=== PATIENT | female | born 2000 | race American Indian/Alaskan Native ===

== ENCOUNTER 2021-06-20 03:19 | Emergency (ER) | payer SELFPAY ==
[2021-06-20] MEDS ORDERED: ONDANSETRON 4 MG/2 ML INJ IV ONE (05:14)
[2021-06-20] MEDS ORDERED: SODIUM CHLORIDE 0.9% 1000 ML 1,000 ML IV ONE (05:17)
[2021-06-20 05:49] LABS: Hemoglobin 14.5 gm/dl (10.1-14.3); Mean Corpuscular HGB Conc 32 % (30-34); Mean Corpuscular Volume 88 fl (79-97); Platelet Count 227 K/mm3 (140-440); Red Cell Distribution Width 13.5 % (13.2-15.2)
[2021-06-20 06:01] LABS: Alanine Aminotransferase 9 units/L (7-56); Albumin 3.8 g/dL (3.9-5); BUN/Creatinine Ratio 11; Blood Urea Nitrogen 11 mg/dL (7-17); Calcium 9.5 mg/dL (8.4-10.2); Hemolysis Index 3
[2021-06-20] MEDS ORDERED: INSULIN REGULAR, HUMAN 100 UNITS/1 ML SUB-Q STA (06:35)
--- NOTE | 2021-06-20 06:46 | Emergency Department Report ---
ED General Adult HPI - General Chief complaint: Abdominal Pain Stated complaint: STOMACH PAIN Source: patient Mode of arrival: Ambulatory Limitations: No Limitations - History of Present Illness Initial comments: 30-year-old noncompliant diabetic -[place] female is my department complaining of nausea vomiting with occasional diarrhea and sensation of weakness for the last few days presents to emergency department seeking pain control and therapy for nausea and vomiting. Reports no hemoptysis hematemesis no hematochezia she reports having a few episodes of diarrhea some aches and pains and diffuse malaise but no chest pain no palpitations no shortness of breath no fever, chills, sweats. States she may have had asthma for quite some time which may have triggered some of the symptoms and needs to be started -: Gradual Radiation: non-radiation Quality: dull Consistency: constant Improves with: none Associated Symptoms: denies other symptoms Treatments Prior to Arrival: none - Related Data Previous Rx's Medication Instructions Recorded Last Taken Type Insulin Glargine [Lantus VIAL] 10 unit SUB-Q QHS #1 vial 06/20/21 Unknown Rx Allergies Allergy/AdvReac Type Severity Reaction Status Date / Time amoxicillin Allergy Anaphylaxis Verified 06/20/21 04:44 ED Review of Systems ROS: Stated complaint: STOMACH PAIN Other details as noted in HPI Comment: All other systems reviewed and negative ED Past Medical Hx - Past Medical History Previous Medical History?: No Hx Diabetes: Yes (Type 2) Hx Renal Disease: Yes - Surgical History Past Surgical History?: No - Medications Home Medications: Home Medications Medication Instructions Recorded Confirmed Last Taken Type Insulin Glargine [Lantus VIAL] 10 unit SUB-Q QHS #1 vial 06/20/21 Unknown Rx ED Physical Exam - General Limitations: No Limitations General appearance: alert, in no apparent distress - Head Head exam: Present: atraumatic, normocephalic - Eye Eye exam: Present: normal appearance, PERRL, EOMI Pupils: Present: normal accommodation - ENT ENT exam: Present: normal exam, mucous membranes moist, TM's normal bilaterally - Neck Neck exam: Present: normal inspection, full ROM. Absent: tenderness, meningismus, lymphadenopathy - Respiratory Respiratory exam: Present: normal lung sounds bilaterally. Absent: respiratory distress, wheezes, rales, rhonchi - Cardiovascular Cardiovascular Exam: Present: regular rate, normal rhythm. Absent: systolic murmur, diastolic murmur, rubs, gallop - GI/Abdominal GI/Abdominal exam: Present: soft, normal bowel sounds - Extremities Exam Extremities exam: Present: normal inspection - Back Exam Back exam: Present: normal inspection - Neurological Exam Neurological exam: Present: alert, oriented X3 - Psychiatric Psychiatric exam: Present: normal affect, normal mood - Skin Skin exam: Present: warm, dry, intact, normal color. Absent: rash ED Course Vital Signs 06/20/21 06/20/21 03:53 03:55 Temperature 97.9 F Pulse Rate 80 Respiratory 18 Rate Blood Pressure 221/111 O2 Sat by Pulse 91 96 Oximetry ED Medical Decision Making - Lab Data Result diagrams: 06/20/21 05:23 06/20/21 05:23 - EKG Data When compared to previous EKG there are: no significant change - Medical Decision Making Problem 1 nausea and vomiting The cause of the patient symptoms not clear but the patient is overall well- appearing and suspected to have a transient course of illness. Given the course and examination does not appear to be an emergent cause of the symptoms such as small bowel obstruction, coronary syndrome, bowel ischemia, DKA, pancreatitis, appendicitis, other acute abdomen or other emergent problem. Reassessment after treatment the patient is feeling much much better tolerating p.o. fluids and shows no signs of any dehydration. Disposition discharge home with prompt primary care physician follow-up in the next 24 hours strict return precautions were discussed Problem 2 hyperglycemia This patient is a 20-year-old female, presenting with apparent acute hyperglycemia. Differential diagnosis includes new onset diabetes, steroid or other medication use, secondary ingestion, reactive hyper glycemia. Consideration considered DKA versus hyperosmolar nonketotic state, sepsis is possible etiology of patient's current presentation. However given the current history and physical including current glucose level the current presentation is consistent with acute asymptomatic hyperglycemia. Plan to treat supportively no indication for further work-up at this time. Plan supportive care, serial pulmonary care glucose monitoring, labs, serial reassessment Critical care attestation.: If time is entered above; I have spent that time in minutes in the direct care of this critically ill patient, excluding procedure time. ED Disposition Clinical Impression: Hyperglycemia, Nausea & vomiting Disposition: 01 HOME / SELF CARE / HOMELESS Is pt being admited?: No Does the pt Need Aspirin: No Condition: Stable Instructions: Abdominal Pain (ED), Blood Glucose Monitoring, Adult, Screening for Type 2 Diabetes, Nausea and Vomiting, Adult Prescriptions: Insulin Glargine [Lantus VIAL] 10 unit SUB-Q QHS #1 vial Referrals: [facility] [Provider Group] - 3-5 Days
[2021-06-20] MEDS ORDERED: cloNIDine 0.2 MG TAB PO STA (06:49)
[2021-06-20 07:45] VITALS: BP 168/85
[2021-06-20 08:20] LABS: Band Neutrophils # (Manual) 0.1 K/mm3; Total Cells Counted 100
[2021-06-20 08:21] LABS: RBC Morphology Normal
== END 2021-06-20 07:45 | disposition home or self-care (01) ==
LOC: ED 03:19
DX: E11.65 Type 2 diabetes mellitus with hyperglycemia (principal); R11.2 Nausea with vomiting, unspecified; Z88.0 Allergy status to penicillin
CPT/HCPCS: 36415; 80053; 82805; 82962; 85007; 85025; 96361; 96372; 96374; 99283; J2405; J7030; J1815